=== PATIENT | male | born 1955 | race American Indian/Alaskan Native ===

== ENCOUNTER 2017-04-08 12:41 | Inpatient (IN) | payer MEDICARE ==
[2017-04-08 12:54] VITALS: BMI 29.2
--- NOTE | 2017-04-08 14:46 | C.PDOC ---
History Of Present Illness 61 year old male presents to ED for evaluation of intermittent shortness of breath, cough with white sputum for the past few months but worse in the past 2 days. Notes using nebulizer treatment without improvement. Denies having similar symptoms in the past. Denies chest pain, or fever. Chief Complaint (Nursing): Shortness Of Breath History Per: Patient History/Exam Limitations: no limitations Past Medical History Reviewed: Historical Data, Nursing Documentation, Vital Signs Vital Signs: Last Vital Signs Temp 98.2 F 04/08/17 20:03 Pulse 80 04/08/17 20:03 Resp 20 04/08/17 20:03 BP 162/105 H 04/08/17 20:03 Pulse Ox 95 04/08/17 20:03 - Medical History PMH: HTN Denies: Chronic Kidney Disease - [facility] Procedures CORONAR ARTERIOGR-2 CATH (01/25/14) LEFT HEART CARDIAC CATH (01/25/14) LT HEART ANGIOCARDIOGRAM (01/25/14) Family History: States: Unknown Family Hx - Social History Hx Alcohol Use: Yes Hx Substance Use: No - Immunization History Hx Tetanus Toxoid Vaccination: No Hx Influenza Vaccination: No Hx Pneumococcal Vaccination: No Review Of Systems Except As Marked, All Systems Reviewed And Found Negative. Constitutional: Negative for: Fever, Chills Cardiovascular: Negative for: Chest Pain, Palpitations Respiratory: Positive for: Cough, Shortness of Breath, Sputum Gastrointestinal: Negative for: Nausea, Vomiting, Abdominal Pain Physical Exam - Physical Exam Appears: Non-toxic, No Acute Distress Skin: Normal Color, Warm, Dry Head: Atraumatic, Normacephalic Eye(s): bilateral: Normal Inspection Oral Mucosa: Moist Cardiovascular: Rhythm Regular, No Murmur Respiratory: Normal Breath Sounds, No Rales, No Rhonchi, No Wheezing Gastrointestinal/Abdominal: Soft, No Tenderness Extremity: Normal ROM, No Pedal Edema Neurological/Psych: Oriented x3, Normal Speech ED Course And Treatment - Laboratory Results Result Diagrams: 04/08/17 14:21 04/08/17 14:21 ECG: Interpreted By Me, Viewed By Me ECG Rhythm: Sinus Rhythm ECG Interpretation: No Changes From Prior Interpretation Of ECG: T wave inversion in lateral leads. LVH. No change from . Rate From EC (bpm) O2 Sat by Pulse Oximetry: 100 (RA) Pulse Ox Interpretation: Normal Disposition - Disposition Disposition: HOSPITALIZED Disposition Time: 16:40 Condition: STABLE - Clinical Impression Clinical Impression: Chronic congestive heart failure - Scribe Statement The provider has reviewed the documentation as recorded by the Scribe Nette Buchanan All medical record entries made by the Scribe were at my direction and personally dictated by me. I have reviewed the chart and agree that the record accurately reflects my personal performance of the history, physical exam, medical decision making, and the department course for this patient. I have also personally directed, reviewed, and agree with the discharge instructions and disposition.
--- NOTE | 2017-04-08 14:58 | RAD ---
PROCEDURE: CHEST RADIOGRAPH, 1 VIEW HISTORY: chest pain COMPARISON: Chest radiograph dated 12/06/2016. FINDINGS: LUNGS: Prominence of the pulmonary vasculature may be secondary to AP technique and/or pulmonary vascular congestion. PLEURA: No pneumothorax or pleural fluid seen. CARDIOVASCULAR: Cardiomediastinal silhouette stably enlarged. OSSEOUS STRUCTURES: Unchanged. VISUALIZED UPPER ABDOMEN: Normal. OTHER FINDINGS: None. IMPRESSION: Prominence of the pulmonary vasculature may be secondary to AP technique and/or pulmonary vascular congestion. No focal consolidation or pleural effusion.
[2017-04-08 15:09] LABS: BASO # 0.1 K/uL (0.0-0.2); BASO % 1.1 % (0.0-2.0); EOS # 0.1 K/uL (0.0-0.7); EOS % 1.2 % (0.0-4.0); HEMOGLOBIN 14.2 g/dL (12.0-18.0); LYMPH # 1.7 K/uL (1.0-4.3); LYMPH % 31.1 % (20.0-40.0); MEAN CELL VOLUME 98.9 fL (80.0-94.0); MEAN CORPUSCULAR HEMOGLOBIN 35.2 pg (27.0-31.0); MEAN CORPUSCULAR HGB CONC 35.6 g/dL (33.0-37.0); MONO # 0.4 K/uL (0.0-0.8); MONO % 6.9 % (0.0-10.0); NEUT # 3.2 K/uL (1.8-7.0); NEUT % 59.7 % (50.0-75.0); RBC 4.04 Mil/uL (4.40-5.90); RED CELL DISTRIBUTION WIDTH 14.4 % (11.5-14.5); WHITE BLOOD COUNT 5.3 K/uL (4.8-10.8)
[2017-04-08 15:30] LABS: ALBUMIN 3.8 g/dL (3.5-5.0); ALT/SGPT 33 U/L (21-72); AST/SGOT 25 U/L (17-59); BLOOD UREA NITROGEN 13 mg/dL (9-20); GFR AFRICAN-AMERICAN > 60; GFR NON-AFRICAN AMERICAN > 60
[2017-04-08 15:41] LABS: B-TYPE NATRIURETIC PEPTIDE 3830 pg/mL (0-900)
[2017-04-08] MEDS ORDERED: Iodixanol 320 MG/ML 100 ML BOTTLE IV ONE (16:25)
--- NOTE | 2017-04-08 17:38 | CT ---
PROCEDURE: CTA chest dated 04/08/2017 HISTORY: Rule out PE. COMPARISON: Correlation made with concurrent chest radiograph obtained earlier same day. TECHNIQUE: Contiguous helical/ transaxial computed tomography images were obtained of the chest in the pulmonary arterial phase of enhancement. Coronal and sagittal reformatted images were created and reviewed. Intravenous contrast dose: 100 cc Visipaque 320 contrast material Radiation dose: Total exam DLP = 466.76 mGy-cm. This CT exam was performed using one or more of the following dose reduction techniques: Automated exposure control, adjustment of the mA and/or kV according to patient size, and/or use of iterative reconstruction technique FINDINGS: PULMONARY ARTERIES: The visualized pulmonary trunk, right and left main, lobar, segmental and proximal subsegmental branches of the pulmonary arteries are well opacified with no filling defects seen to suggest acute pulmonary embolus. Pulmonary trunk measures approximately 3.53 cm. AORTA: Ascending thoracic aorta is minimally dilated measuring nearly 3.8 cm and descending thoracic aorta measures approximately 2.8 cm. No evidence of aortic dissection. LUNGS: There is a mild to moderate-sized right-sided effusion with some minimal right basilar atelectasis. . Tiny left-sided effusion is present. Centrilobular and paraseptal emphysematous changes are present upper lobe predominance right greater than left. PLEURAL SPACES: Unremarkable. No effusion or pneumothorax. HEART: Heart is enlarged. No significant pericardial effusion. . LYMPH NODES: Multiple small to mildly enlarged mediastinal lymph nodes are present. The largest right parasagittal pretracheal/precarinal lymph node measures approximately 21 mm. There is a large approximately 3.0 cm cc x1 0.9 cm AP left suprahilar lymph node. Few smaller pre tracheal lymph nodes are seen as well. . Ill-defined rounded soft tissue mass density in the posterior inferior subcarinal region adjacent to the right aspect of the esophagus and dorsal to the left atrium extending into the as ago esophageal recess. . The due to enhancement of the pulmonary arterial vasculature and suboptimal contrast enhancement of the adjacent aorta evaluation is somewhat limited and the peripheral margins poorly delineated. This lesion is estimated at approximately 2.6 cm in greatest transverse dimension. It is unclear the relationship with the esophagus however correlation with endoscopy may be prudent. There is a small hiatal hernia with slight wall thickening of the distal esophagus likely due to protrusion of gastric mucosa. Esophagitis or other intrinsic/ invasive wall lesion not excluded. . Central airways are midline and patent. No large central endoluminal lesions. BONES, CHEST WALL: Mild multilevel degenerative spondylosis of the thoracic spine. No acute compression fractures no retropulsed fragments. No obvious suspicious lytic or blastic lesions. Minimal changes of gynecomastia. Several small right axillary lymph nodes are present. OTHER FINDINGS: Small calcification right renal hilar region felt to be vascular in origin. There are also calcifications seen at the origins of the proximal renal arteries left greater than right. Enlargement of the adrenal glands left greater than right. IMPRESSION: No evidence of acute pulmonary embolus. Mediastinal adenopathy as described. Underlying malignancy must be excluded. . Moderate size right-sided effusion. Emphysematous changes upper lobe predominance right greater than left. Note these findings were discussed with Dr. Gonzalez at approximately 5:28 p.m. with written down and read back verification.
--- NOTE | 2017-04-08 19:22 | CP.PCM.HP ---
History of Present Illness - History of Present Illness History of Present Illness: CC: SOB HPI: Patient is a 61 year old male with past medical history of HTN , heart murmur, who reports a 6 month history of increasing shortness of breath , accompanied by intermittent cough productive of white-yellow sputum. Patient saw Dr. Wan outpatient 2-3 weeks ago and was prescribed nebulizer but has hasn' t used it because he just got it recently. He reports that he often feels short of breath and dizzy when he wakes up in the morning. He states that he has been coughing a lot and gagging on the sputum, and he has to sleep propped up on multiple pillows at night. He denies needing to elevate his legs. He is not on home oxygen. His symptoms were significantly worse over the last few days, to the point where he was short of breath with rest and minimal exertion, so he came to the ED for evaluation. He reports subjective fever and chills. Otherwise , no chest pain, abdominal pain, leg swelling, recent illness. Patient did not get influenza/pneumococcal vaccines. Patient last saw his stone banker Dr. Obrien and manufacturing management associate Dr. Murphy a couple of months ago. His last cardiac catheterization was in January 2014 and it showed nonobstructive coronary arteries and normal LV function. Patient mentions a possible history of asbestos exposure. PMD: Dr. Wan Cardio: Dr. Angel Obrien Pulmo: Dr. Murphy PMH: HTN, heart murmur PSH: Bilateral knee replacements, bilateral shoulder repairs, cardiac catheterization (January 2014) Family History: Father (living, age 87, has unknown heart problem), Mother ( unknown heart problem; passed at age 77 due to kidney failure); no known history of CVA Medications: Hydrochlorthiazide 12.5mg PO daily, Losartan 25mg PO daily, Coreg 6.125mg PO BID, Advair 500/50mg RQ4H, nebulizer treatment, Singulair 10mg HS, Omeprazole 20mg PO daily, Albuterol/Ipratropium 120 puff inhaler Q6H Allergies: denies Social History: currently retired, formerly employed at [employer]; 42 pack year smoking history, has decreased over the last 3 weeks to 1 pack every 3 days; drinks alcohol daily; no recreational drug use Present on Admission - Present on Admission Any Indicators Present on Admission: No Review of Systems - Constitutional Constitutional: Chills, Fever - EENT Eyes: absent: Blurred Vision, Change in Vision Nose/Mouth/Throat: absent: Nasal Congestion, Nasal Discharge - Cardiovascular Cardiovascular: Dyspnea, Dyspnea on Exertion, Orthopnea, Paroxysmal Nocturnal Dyspnea. absent: Chest Pain, Chest Pain at Rest, Chest Pain with Activity, Edema, Leg Edema, Palpitations, Pedal Edema - Respiratory Respiratory: Cough, Wheezing, Chest Congestion, Excessive Mucous Production. absent: Dyspnea, Change in Mucous Color - Gastrointestinal Gastrointestinal: absent: Abdominal Pain, Cramping, Diarrhea, Nausea, Vomiting - Psychiatric Psychiatric: absent: Anxiety - Endocrine Endocrine: Fatigue. absent: Palpitations Past Patient History - Past Medical History & Family History Past Medical History?: Yes - Past Social History Smoking Status: Heavy Smoker > 10 Cigarettes Daily - CARDIAC Hx Hypertension: Yes - PULMONARY Hx Respiratory Disorders: No - NEUROLOGICAL Hx Neurological Disorder: No - HEENT Hx HEENT Problems: No - RENAL Hx Chronic Kidney Disease: No - ENDOCRINE/METABOLIC Hx Endocrine Disorders: No - HEMATOLOGICAL/ONCOLOGICAL Hx Blood Disorders: No - INTEGUMENTARY Hx Dermatological Problems: No - MUSCULOSKELETAL/RHEUMATOLOGICAL Hx Musculoskeletal Disorders: Yes (PAIN KNEE/SHOULDER) Hx Degenerative Joint Disease: Yes Hx Osteoarthritis: Yes - GASTROINTESTINAL Hx Gastrointestinal Disorders: No - GENITOURINARY/GYNECOLOGICAL Hx Genitourinary Disorders: No - PSYCHIATRIC Hx Substance Use: No - SURGICAL HISTORY Hx Surgeries: Yes Hx Joint Replacement: Yes (RT KNEE) Hx Musculoskeletal Surgery: Yes (TENDON LEFT SHOULDER) - ANESTHESIA Hx Anesthesia: Yes Hx Anesthesia Reactions: No Hx Malignant Hyperthermia: No Meds Allergies/Adverse Reactions: Allergies Allergy/AdvReac Type Severity Reaction Status Date / Time No Known Allergies Allergy Verified 04/08/17 12:53 Physical Exam - Constitutional Appears: No Acute Distress - Head Exam Head Exam: ATRAUMATIC, NORMAL INSPECTION - Eye Exam Eye Exam: EOMI - ENT Exam ENT Exam: Mucous Membranes Moist - Respiratory Exam Respiratory Exam: Clear to Auscultation Bilateral, NORMAL BREATHING PATTERN Additional comments: Congestion - Cardiovascular Exam Cardiovascular Exam: REGULAR RHYTHM, +S1, +S2 - GI/Abdominal Exam GI & Abdominal Exam: Normal Bowel Sounds, Soft - Extremities Exam Extremities exam: Positive for: normal inspection. Negative for: calf tenderness, pedal edema - Back Exam Back exam: absent: CVA tenderness (L), CVA tenderness (R) - Neurological Exam Neurological exam: Alert, Oriented x3 - Psychiatric Exam Psychiatric exam: Normal Affect, Normal Mood Results - Vital Signs Recent Vital Signs: Last Vital Signs Temp 97.6 F 04/08/17 12:55 Pulse 76 04/08/17 17:49 Resp 20 04/08/17 17:17 BP 148/98 H 04/08/17 17:49 Pulse Ox 99 04/08/17 17:17 - Labs Result Diagrams: 04/08/17 14:21 04/08/17 14:21 Labs: Laboratory Results - last 24 hr 04/08/17 04/08/17 04/08/17 14:21 14:21 14:25 WBC 5.3 RBC 4.04 L Hgb 14.2 Hct 39.9 MCV 98.9 H MCH 35.2 H MCHC 35.6 RDW 14.4 Plt Count 238 MPV 8.0 Neut % (Auto) 59.7 Lymph % (Auto) 31.1 [place] % (Auto) 6.9 Eos % (Auto) 1.2 Baso % (Auto) 1.1 Neut # (Auto) 3.2 Lymph # (Auto) 1.7 [place] # (Auto) 0.4 Eos # (Auto) 0.1 Baso # (Auto) 0.1 D-Dimer, Quantitative Sodium 138 Potassium 3.4 L Chloride 103 Carbon Dioxide 25 Anion Gap 14 BUN 13 Creatinine 1.0 Est GFR ( Amer) > 60 Est GFR (Non-Af Amer) > 60 Random Glucose 125 H Calcium 9.0 Total Bilirubin 1.1 AST 25 ALT 33 Alkaline Phosphatase 79 Troponin I 0.0550 NT-Pro-B Natriuret Pep 3830 H Total Protein 7.7 Albumin 3.8 Globulin 3.9 Albumin/Globulin Ratio 1.0 Influenza Typ A,B (EIA) Negative for flu a/b 04/08/17 14:25 WBC RBC Hgb Hct MCV MCH MCHC RDW Plt Count MPV Neut % (Auto) Lymph % (Auto) [place] % (Auto) Eos % (Auto) Baso % (Auto) Neut # (Auto) Lymph # (Auto) [place] # (Auto) Eos # (Auto) Baso # (Auto) D-Dimer, Quantitative 713 H Sodium Potassium Chloride Carbon Dioxide Anion Gap BUN Creatinine Est GFR ( Amer) Est GFR (Non-Af Amer) Random Glucose Calcium Total Bilirubin AST ALT Alkaline Phosphatase Troponin I NT-Pro-B Natriuret Pep Total Protein Albumin Globulin Albumin/Globulin Ratio Influenza Typ A,B (EIA) Assessment & Plan (1) Acute congestive heart failure Assessment and Plan: On admission: BNP: 3830 Labs: Troponin: Negative X1, f/U troponin X2 Image: Chest X-ray: Prominence of the pulmonary vasculature may be secondary to AP technique and/or pulmonary vascular congestion. No focal consolidation or pleural effusion. Chest CT: Moderate size right-sided effusion F/u echo Medications: Lasix 40mg IV daily Hydrochlorthiazide 12.5mg PO daily Losartan 25mg PO daily Monitor input and output Status: Acute (2) COPD exacerbation Assessment and Plan: Conveyor Feeder, Dr. Murphy consulted---> Help appreciated Chest CT: Emphysematous changes upper lobe predominance right greater than left. Medications: * Solumedrol 40mg IV Q12H * Duonebs RQ3H * Acetylcysteine 20% RQ3H * Singulair 10mg HS Status: Acute (3) Elevated d-dimer Assessment and Plan: Chest CT: No evidence of acute pulmonary embolus. Status: Acute (4) Hypertension Assessment and Plan: Continue home medications: * Coreg 6.125mg PO BID * Hydrochlorthiazide 12.5mg PO daily * Losartan 25mg PO daily f/U Lipid panel, HgbA1C and TSH Status: Acute (5) Prophylactic measure Assessment and Plan: GI: Protonix 40mg PO daily DVT: SCDs, Lovenox 30mg SC daily Aspirin 81mg PO daily Crestor 5 mg PO HS Heart healthy diet All plans and management discussed with Dr. Wan Status: Acute
[2017-04-08] MEDS ORDERED: Acetylcysteine 20% Inhal Soln (4ml) INH SCH (20:45)
[2017-04-08] MEDS ORDERED: MethylPREDNISolone 1 gm Vial IV SCH ×2 (21:00)
[2017-04-08] MEDS: MethylPREDNISolone 40 mg Vial IV SCH (21:17)
[2017-04-08] MEDS: Albuterol-Ipratrop 3 mg / 0.5 (3 ml) UD INH SCH (21:25)
[2017-04-09] MEDS ORDERED: Fluticasone-Salmeterol 500-50mcg Diskus IH SCH
[2017-04-09] MEDS: Albuterol-Ipratrop 3 mg / 0.5 (3 ml) UD INH SCH ×5 (00:32→11:33)
[2017-04-09] MEDS: Acetylcysteine 20% Inhal Soln (4ml) INH SCH ×7 (00:33→19:35)
[2017-04-09 08:26] LABS: BASO % 0.5 % (0.0-2.0); LYMPH # 0.5 K/uL (1.0-4.3); LYMPH % 12.5 % (20.0-40.0); MEAN CORPUSCULAR HEMOGLOBIN 35.1 pg (27.0-31.0); MEAN CORPUSCULAR HGB CONC 35.5 g/dL (33.0-37.0); MEAN PLATELET VOLUME 8.2 fL (7.2-11.7); MONO # 0.1 K/uL (0.0-0.8); MONO % 1.6 % (0.0-10.0); NEUT # 3.6 K/uL (1.8-7.0); NEUT % 85.4 % (50.0-75.0); NRBC % 0.1 % (0.0-2.0); RBC 3.99 Mil/uL (4.40-5.90); RED CELL DISTRIBUTION WIDTH 14.3 % (11.5-14.5); WHITE BLOOD COUNT 4.2 K/uL (4.8-10.8)
[2017-04-09 08:52] LABS: ALBUMIN 3.9 g/dL (3.5-5.0); ALT/SGPT 31 U/L (21-72); AST/SGOT 25 U/L (17-59); BLOOD UREA NITROGEN 13 mg/dL (9-20); CALCIUM 9.1 mg/dl (8.6-10.4); GFR AFRICAN-AMERICAN > 60; GFR NON-AFRICAN AMERICAN > 60; HDL CHOLESTEROL 38 mg/dL (30-70)
[2017-04-09] MEDS: Fluticasone-Salmeterol 500-50mcg Diskus INH SCH (09:00)
[2017-04-09 09:16] LABS: LDL CHOLESTEROL 114 mg/dL (0-129)
[2017-04-09] MEDS: MethylPREDNISolone 40 mg Vial IV SCH ×2 (09:25→23:30)
[2017-04-09] MEDS: Pantoprazole 40 mg EC Tab PO SCH (10:11)
--- NOTE | 2017-04-09 12:10 | CP.PCM.CON ---
History of Present Illness - History of Present Illness History of Present Illness: Complaining of cough and shortness of breath 61-year-old male with history of hypertension, long history of smoking and possible COPD was admitted with 6 month history of shortness of breath and cough. Patient was seen in the office a few months ago but lost followup. CAT scan of the chest done consistent with mediastinal llymphadenopathy and possible mass. Status post cardiac catheter few years ago with nonobstructive coronary arteries. PMH: HTN, heart murmur PSH: Bilateral knee replacements, bilateral shoulder repairs, cardiac catheterization (January 2014) Family History: Father (living, age 87, has unknown heart problem), Mother ( unknown heart problem; passed at age 77 due to kidney failure); no known history of CVA Medications: Hydrochlorthiazide 12.5mg PO daily, Losartan 25mg PO daily, Coreg 6.125mg PO BID, Advair 500/50mg RQ4H, nebulizer treatment, Singulair 10mg HS, Omeprazole 20mg PO daily, Albuterol/Ipratropium 120 puff inhaler Q6H Allergies: denies Social History: currently retired, formerly employed at [employer]; 42 pack year smoking history, has decreased over the last 3 weeks to 1 pack every 3 days; drinks alcohol daily; no recreational drug use Review of Systems - Review of Systems All systems: reviewed and no additional remarkable complaints except (shortness of breath and cough) Past Patient History - Past Medical History & Family History Past Medical History?: Yes - Past Social History Smoking Status: Never Smoked - CARDIAC Hx Hypertension: Yes - PULMONARY Hx Respiratory Disorders: No - NEUROLOGICAL Hx Neurological Disorder: No - HEENT Hx HEENT Problems: No - RENAL Hx Chronic Kidney Disease: No - ENDOCRINE/METABOLIC Hx Endocrine Disorders: No - HEMATOLOGICAL/ONCOLOGICAL Hx Blood Disorders: No - INTEGUMENTARY Hx Dermatological Problems: No - MUSCULOSKELETAL/RHEUMATOLOGICAL Hx Falls: No - GASTROINTESTINAL Hx Gastrointestinal Disorders: No - GENITOURINARY/GYNECOLOGICAL Hx Genitourinary Disorders: No - PSYCHIATRIC Hx Substance Use: No - SURGICAL HISTORY Hx Surgeries: Yes Hx Joint Replacement: Yes (RT KNEE) Hx Musculoskeletal Surgery: Yes (TENDON LEFT SHOULDER) - ANESTHESIA Hx Anesthesia: Yes Hx Anesthesia Reactions: No Hx Malignant Hyperthermia: No Meds Allergies/Adverse Reactions: Allergies Allergy/AdvReac Type Severity Reaction Status Date / Time No Known Allergies Allergy Verified 04/08/17 12:53 - Medications Medications: Current Medications Acetylcysteine (Acetylcysteine 20%) 4 ml INH RQ3 [facility] Last Admin: 04/09/17 11:33 Dose: 4 ml Albuterol/Ipratropium (Duoneb 3 Mg/0.5 Mg (3 Ml) Ud) 3 ml INH RQ3 [facility] Last Admin: 04/09/17 11:33 Dose: 3 ml Aspirin (Aspirin Chewable) 81 mg PO DAILY [facility] Last Admin: 04/09/17 10:12 Dose: 81 mg Carvedilol (Coreg) 12.5 mg PO BID [facility] Last Admin: 04/09/17 10:14 Dose: 12.5 mg Furosemide (Lasix) 40 mg IVP DAILY [facility] Last Admin: 04/09/17 11:00 Dose: 40 mg Hydrochlorothiazide (Microzide) 12.5 mg PO DAILY [facility] Last Admin: 04/09/17 10:11 Dose: 12.5 mg Losartan Potassium (Cozaar) 25 mg PO DAILY [facility] Methylprednisolone (Solu-Medrol) 40 mg IV Q12H [facility] Last Admin: 04/09/17 09:25 Dose: 40 mg Montelukast Sodium (Singulair) 10 mg PO HS [facility] Last Admin: 04/08/17 21:18 Dose: 10 mg Nicotine (Nicoderm Cq) 1 patch TD DAILY [facility] Last Admin: 04/09/17 11:00 Dose: 1 patch Pantoprazole Sodium (Protonix Ec Tab) 40 mg PO DAILY [facility] Last Admin: 04/09/17 10:11 Dose: 40 mg Rosuvastatin Calcium (Crestor) 5 mg PO HS [facility] Last Admin: 04/08/17 21:21 Dose: 5 mg Fluticasone/Salmeterol (Advair Diskus 500/50) 1 puff INH RQ12 [facility] Last Admin: 04/09/17 09:00 Dose: 1 puff Physical Exam - Head Exam Head Exam: ATRAUMATIC, NORMOCEPHALIC - ENT Exam ENT Exam: Mucous Membranes Moist - Neck Exam Neck exam: Positive for: Normal Inspection - Respiratory Exam Respiratory Exam: Rhonchi, Wheezes - Cardiovascular Exam Cardiovascular Exam: REGULAR RHYTHM - GI/Abdominal Exam GI & Abdominal Exam: Normal Bowel Sounds, Soft - Extremities Exam Extremities exam: Positive for: normal inspection Results - Vital Signs Recent Vital Signs: Last Vital Signs Temp 98.2 F 04/09/17 07:30 Pulse 80 04/09/17 07:30 Resp 20 04/09/17 07:30 BP 151/89 H 04/09/17 11:00 Pulse Ox 98 04/09/17 07:30 - Labs Result Diagrams: 04/09/17 08:13 04/09/17 08:13 Labs: Laboratory Results - last 24 hr 04/08/17 04/08/17 04/08/17 14:21 14:21 14:25 WBC 5.3 RBC 4.04 L Hgb 14.2 Hct 39.9 MCV 98.9 H MCH 35.2 H MCHC 35.6 RDW 14.4 Plt Count 238 MPV 8.0 Neut % (Auto) 59.7 Lymph % (Auto) 31.1 [place] % (Auto) 6.9 Eos % (Auto) 1.2 Baso % (Auto) 1.1 Neut # (Auto) 3.2 Lymph # (Auto) 1.7 [place] # (Auto) 0.4 Eos # (Auto) 0.1 Baso # (Auto) 0.1 D-Dimer, Quantitative Sodium 138 Potassium 3.4 L Chloride 103 Carbon Dioxide 25 Anion Gap 14 BUN 13 Creatinine 1.0 Est GFR ( Amer) > 60 Est GFR (Non-Af Amer) > 60 Random Glucose 125 H Hemoglobin A1c Calcium 9.0 Total Bilirubin 1.1 AST 25 ALT 33 Alkaline Phosphatase 79 Troponin I 0.0550 NT-Pro-B Natriuret Pep 3830 H Total Protein 7.7 Albumin 3.8 Globulin 3.9 Albumin/Globulin Ratio 1.0 Triglycerides Cholesterol LDL Cholesterol Direct HDL Cholesterol Procalcitonin Influenza Typ A,B (EIA) Negative for flu a/b 04/08/17 04/08/17 04/09/17 14:25 22:29 08:13 WBC 4.2 L RBC 3.99 L Hgb 14.0 Hct 39.5 MCV 99.0 H MCH 35.1 H MCHC 35.5 RDW 14.3 Plt Count 241 MPV 8.2 Neut % (Auto) 85.4 H Lymph % (Auto) 12.5 L [place] % (Auto) 1.6 Eos % (Auto) 0.0 Baso % (Auto) 0.5 Neut # (Auto) 3.6 Lymph # (Auto) 0.5 L [place] # (Auto) 0.1 Eos # (Auto) 0.0 Baso # (Auto) 0.0 D-Dimer, Quantitative 713 H Sodium Potassium Chloride Carbon Dioxide Anion Gap BUN Creatinine Est GFR ( Amer) Est GFR (Non-Af Amer) Random Glucose Hemoglobin A1c Calcium Total Bilirubin AST ALT Alkaline Phosphatase Troponin I 0.0480 NT-Pro-B Natriuret Pep Total Protein Albumin Globulin Albumin/Globulin Ratio Triglycerides Cholesterol LDL Cholesterol Direct HDL Cholesterol Procalcitonin Influenza Typ A,B (EIA) 04/09/17 04/09/17 04/09/17 08:13 08:13 08:13 WBC RBC Hgb Hct MCV MCH MCHC RDW Plt Count MPV Neut % (Auto) Lymph % (Auto) [place] % (Auto) Eos % (Auto) Baso % (Auto) Neut # (Auto) Lymph # (Auto) [place] # (Auto) Eos # (Auto) Baso # (Auto) D-Dimer, Quantitative Sodium 137 Potassium 3.7 Chloride 103 Carbon Dioxide 24 Anion Gap 14 BUN 13 Creatinine 0.9 Est GFR ( Amer) > 60 Est GFR (Non-Af Amer) > 60 Random Glucose 143 H Hemoglobin A1c 5.4 Calcium 9.1 Total Bilirubin 0.8 AST 25 ALT 31 Alkaline Phosphatase 76 Troponin I 0.0280 NT-Pro-B Natriuret Pep Total Protein 7.8 Albumin 3.9 Globulin 3.9 Albumin/Globulin Ratio 1.0 Triglycerides 45 Cholesterol 159 LDL Cholesterol Direct 114 HDL Cholesterol 38 Procalcitonin < 0.05 L Influenza Typ A,B (EIA) Assessment & Plan (1) Mediastinal lymphadenopathy Status: Acute Comment: rule out malignancy. Consider GI evaluation. EBUS AND bronchoscopy with biopsy (2) COPD exacerbation Status: Acute Comment: ccontinue IV steroids. Nebulizer treatment. Add antibiotics. spiriva
--- NOTE | 2017-04-09 17:10 | CP.PCM.PN ---
Subjective - Date & Time of Evaluation Date of Evaluation: 04/09/17 Time of Evaluation: 17:11 - Subjective Subjective: PGY2 Medicine Note for Dr. Wan Patient seen and examined at bedside this AM; denies any acute complaints or overnight events; denies fevers/chills, BENEDICT, CP, SOB, abdominal pain, N/V/D, dysuria/freq/urg or lower extremity pain. patient was told to stop smoking and was given nicotine patch. Objective - Vital Signs/Intake and Output Vital Signs (last 24 hours): Temp Pulse Resp BP Pulse Ox 98.2 F 80 20 151/89 H 98 04/09/17 07:30 04/09/17 07:30 04/09/17 07:30 04/09/17 11:00 04/09/17 07:30 Intake and Output: 04/09/17 04/09/17 06:59 18:59 Intake Total 440 Balance 440 - Medications Medications: Current Medications Acetylcysteine (Acetylcysteine 20%) 4 ml INH RQ3 [facility] Last Admin: 04/09/17 16:17 Dose: 4 ml Albuterol/Ipratropium (Duoneb 3 Mg/0.5 Mg (3 Ml) Ud) 3 ml INH RQ3 [facility] Last Admin: 04/09/17 11:33 Dose: 3 ml Aspirin (Aspirin Chewable) 81 mg PO DAILY [facility] Last Admin: 04/09/17 10:12 Dose: 81 mg Carvedilol (Coreg) 12.5 mg PO BID [facility] Last Admin: 04/09/17 10:14 Dose: 12.5 mg Furosemide (Lasix) 40 mg IVP DAILY [facility] Last Admin: 04/09/17 11:00 Dose: 40 mg Hydrochlorothiazide (Microzide) 12.5 mg PO DAILY [facility] Last Admin: 04/09/17 10:11 Dose: 12.5 mg Losartan Potassium (Cozaar) 25 mg PO DAILY [facility] Last Admin: 04/09/17 10:14 Dose: 25 mg Methylprednisolone (Solu-Medrol) 40 mg IV Q12H [facility] Last Admin: 04/09/17 09:25 Dose: 40 mg Montelukast Sodium (Singulair) 10 mg PO HS [facility] Last Admin: 04/08/17 21:18 Dose: 10 mg Nicotine (Nicoderm Cq) 1 patch TD DAILY [facility] Last Admin: 04/09/17 11:00 Dose: 1 patch Pantoprazole Sodium (Protonix Ec Tab) 40 mg PO DAILY [facility] Last Admin: 04/09/17 10:11 Dose: 40 mg Rosuvastatin Calcium (Crestor) 5 mg PO HS [facility] Last Admin: 04/08/17 21:21 Dose: 5 mg Fluticasone/Salmeterol (Advair Diskus 500/50) 1 puff INH RQ12 [facility] Last Admin: 04/09/17 09:00 Dose: 1 puff - Labs Labs: 04/09/17 08:13 04/09/17 08:13 - Constitutional Appears: Well, Non-toxic - Head Exam Head Exam: ATRAUMATIC - Eye Exam Eye Exam: EOMI - ENT Exam ENT Exam: Mucous Membranes Moist - Neck Exam Neck Exam: Full ROM. absent: Lymphadenopathy - Respiratory Exam Respiratory Exam: Clear to Ausculation Bilateral, NORMAL BREATHING PATTERN. absent: Rales, Rhonchi, Wheezes - Cardiovascular Exam Cardiovascular Exam: REGULAR RHYTHM, +S1, +S2 - GI/Abdominal Exam GI & Abdominal Exam: Soft, Normal Bowel Sounds. absent: Tenderness - Extremities Exam Extremities Exam: Full ROM. absent: Calf Tenderness - Back Exam Back Exam: NORMAL INSPECTION. absent: CVA tenderness (L), CVA tenderness (R) - Neurological Exam Neurological Exam: Alert, Awake, CN II-XII Intact, Oriented x3 - Skin Skin Exam: Warm Assessment and Plan - Assessment and Plan (Free Text) Assessment: 61yo M admitted for CHF exacerbation Acute congestive heart failure BNP: 3830 Troponin negative to date Chest X-ray: Prominence of the pulmonary vasculature may be secondary to AP technique and/or pulmonary vascular congestion. No focal consolidation or pleural effusion. 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 Medications: * Solumedrol 40mg IV Q12H * Duonebs RQ3H * Acetylcysteine 20% RQ3H * Singulair 10mg HS Smoking cessation strongly encouraged to patient nicotine patch given Elevated d-dimer; PE ruled out Chest CT: No evidence of acute pulmonary embolus. Hypertension;Chronic Continue home medications: * Coreg 6.125mg PO BID * Hydrochlorthiazide 12.5mg PO daily * Losartan 25mg PO daily * add aldactone Prophylactic measure GI: Protonix 40mg PO daily DVT: SCDs, Lovenox 30mg SC daily Aspirin 81mg PO daily Crestor 5 mg PO HS Heart healthy diet All plans and management discussed with Dr. Wan; all management as per Dr. Wan
[2017-04-10] MEDS: Albuterol-Ipratrop 3 mg / 0.5 (3 ml) UD INH SCH ×4 (01:38→11:23)
[2017-04-10] MEDS: Acetylcysteine 20% Inhal Soln (4ml) INH SCH ×4 (01:44→11:23)
[2017-04-10] MEDS: Fluticasone-Salmeterol 500-50mcg Diskus INH SCH (08:10)
[2017-04-10 08:33] LABS: BASO % 0.1 % (0.0-2.0); HEMOGLOBIN 14.2 g/dL (12.0-18.0); LYMPH # 0.6 K/uL (1.0-4.3); LYMPH % 5.4 % (20.0-40.0); MEAN CELL VOLUME 99.2 fL (80.0-94.0); MEAN CORPUSCULAR HEMOGLOBIN 35.3 pg (27.0-31.0); MEAN CORPUSCULAR HGB CONC 35.6 g/dL (33.0-37.0); MEAN PLATELET VOLUME 8.4 fL (7.2-11.7); MONO # 0.2 K/uL (0.0-0.8); NEUT # 9.7 K/uL (1.8-7.0); NEUT % 92.5 % (50.0-75.0); PLATELET COUNT 241 K/uL (130-400); RBC 4.04 Mil/uL (4.40-5.90); RED CELL DISTRIBUTION WIDTH 14.3 % (11.5-14.5); WHITE BLOOD COUNT 10.4 K/uL (4.8-10.8)
[2017-04-10 08:47] VITALS: BP 146/99; PULSE 82; RESP 20; TEMP 97.6; O2SAT 96
[2017-04-10] MEDS: Pantoprazole 40 mg EC Tab PO SCH (09:07)
[2017-04-10] MEDS: MethylPREDNISolone 40 mg Vial IV SCH (09:08)
[2017-04-10 09:14] LABS: ALBUMIN 3.8 g/dL (3.5-5.0); ALT/SGPT 22 U/L (21-72); AST/SGOT 24 U/L (17-59); BLOOD UREA NITROGEN 17 mg/dL (9-20); CALCIUM 8.9 mg/dl (8.6-10.4); GFR AFRICAN-AMERICAN > 60; GFR NON-AFRICAN AMERICAN > 60
[2017-04-10 09:41] LABS: LYMPHOCYTE 7 % (20-40); MONOCYTE 2 % (0-10); NEUTROPHIL 91 % (50-75); PLATELET ESTIMATE NORMAL (NORMAL); TOTAL CELLS COUNTED 100
[2017-04-10 09:43] LABS: ANISOCYTOSIS SLIGHT
[2017-04-10 09:44] LABS: TOXIC GRANULATION PRESENT
--- NOTE | 2017-04-10 10:36 | CARD ---
APPROVED REPORT EXAM: Two-dimensional and M-mode echocardiogram with Doppler and color Doppler. Other Information Quality : GoodRhythm : NSR INDICATION Dyspnea M-Mode DIMENSIONS Left Atrium (MM)5.27 (2.5-4.0cm)IVSd1.11 (0.7-1.1cm) Aortic Root3.65 (2.2-3.7cm)LVDd6.60 (4.0-5.6cm) Aortic Cusp Exc.1.73 (1.5-2.0cm)PWd1.11 (0.7-1.1cm) FS (%) 15 %LVDs5.61 (2.0-3.8cm) LVEF (%)31 (>50%) Aortic Valve AI P 1/2 [id number] Mitral Valve MV E Zyxvccrf397.4cm/sMV A Rrggbzsh76.2cm/sE/A ratio2.3 TDI E/Lateral E'0.0E/Medial E'0.0 Tricuspid Valve TR Peak [id number]/sTR Peak [id number] LEFT VENTRICLE The Left Ventricle is borderline dilated. There is borderline left ventricular hypertrophy. Left ventricle systolic function is moderately to severely impaired. The Ejection Fraction is 30-35%. There is global hypokinesis of the left ventricle. Transmitral Doppler flow pattern is Grade II-pseudonormal filling dynamics. There is no ventricular septal defect visualized. RIGHT VENTRICLE The right ventricle is normal size. The right ventricular systolic function is normal. ATRIA The left atrium is mildly dilated. The right atrium size is normal. AORTIC VALVE The aortic valve is mildly sclerotic. The aortic valve is tri-cuspid. There is mild to moderate aortic regurgitation. There is no aortic valvular stenosis. MITRAL VALVE The mitral valve is normal in structure. There is no evidence of mitral valve prolapse. Mitral regurgitation is mild. TRICUSPID VALVE The tricuspid valve is normal in structure. There is trace tricuspid regurgitation. Right ventricular systolic pressure is estimated at less than 30 mmHg. There is no pulmonary hypertension. PULMONIC VALVE The pulmonic valve is not well visualized. There is trace pulmonic valvular regurgitation. GREAT VESSELS The aortic root is normal in size. The IVC was not visualized. PERICARDIAL EFFUSION There is no pericardial effusion. <Conclusion> There is borderline left ventricular hypertrophy. Left ventricle systolic function is moderately to severely impaired. The Ejection Fraction is 30-35%. There is global hypokinesis of the left ventricle. Transmitral Doppler flow pattern is Grade II-pseudonormal filling dynamics. There is mild to moderate aortic regurgitation. Mitral regurgitation is mild.
--- NOTE | 2017-04-10 13:40 | CP.PCM.DIS ---
Provider - Provider Date of Admission: 04/08/17 14:50 Attending physician: Eric Helton Jr, MD Primary care physician: Dr. helton Consults: Dr. Murphy; pulm Dr. Obrien; cardio patient will see dr cervantes on outpatient as per Dr. Helton Time Spent in preparation of Discharge (in minutes): 45 Hospital Course - Lab Results Lab Results: Micro Results 04/08/17 14:30 Blood Blood Culture - Preliminary NO GROWTH AFTER 24 HOURS 04/08/17 15:00 Blood Blood Culture - Preliminary NO GROWTH AFTER 24 HOURS Most Recent Lab Values WBC 10.4 K/uL (4.8-10.8) D 04/10/17 08:24 RBC 4.04 Mil/uL (4.40-5.90) L 04/10/17 08:24 Hgb 14.2 g/dL (12.0-18.0) 04/10/17 08:24 Hct 40.0 % (35.0-51.0) 04/10/17 08:24 MCV 99.2 fL (80.0-94.0) H 04/10/17 08:24 MCH 35.3 pg (27.0-31.0) H 04/10/17 08:24 MCHC 35.6 g/dL (33.0-37.0) 04/10/17 08:24 RDW 14.3 % (11.5-14.5) 04/10/17 08:24 Plt Count 241 K/uL (130-400) 04/10/17 08:24 MPV 8.4 fL (7.2-11.7) 04/10/17 08:24 Neut % (Auto) 92.5 % (50.0-75.0) H 04/10/17 08:24 Lymph % (Auto) 5.4 % (20.0-40.0) L 04/10/17 08:24 Fajardo % (Auto) 2.0 % (0.0-10.0) 04/10/17 08:24 Eos % (Auto) 0.0 % (0.0-4.0) 04/10/17 08:24 Baso % (Auto) 0.1 % (0.0-2.0) 04/10/17 08:24 Neut # (Auto) 9.7 K/uL (1.8-7.0) H 04/10/17 08:24 Lymph # (Auto) 0.6 K/uL (1.0-4.3) L 04/10/17 08:24 Fajardo # (Auto) 0.2 K/uL (0.0-0.8) 04/10/17 08:24 Eos # (Auto) 0.0 K/uL (0.0-0.7) 04/10/17 08:24 Baso # (Auto) 0.0 K/uL (0.0-0.2) 04/10/17 08:24 Neutrophils % (Manual) 91 % (50-75) H 04/10/17 08:24 Lymphocytes % (Manual) 7 % (20-40) L 04/10/17 08:24 Monocytes % (Manual) 2 % (0-10) 04/10/17 08:24 Toxic Granulation Present 04/10/17 08:24 Platelet Estimate Normal (NORMAL) 04/10/17 08:24 Anisocytosis (manual) Slight 04/10/17 08:24 D-Dimer, Quantitative 713 ng/mlDDU (0-243) H 04/08/17 14:25 Sodium 138 mmol/L (132-148) 04/10/17 08:24 Potassium 4.1 mmol/L (3.6-5.2) 04/10/17 08:24 Chloride 103 mmol/L (98-107) 04/10/17 08:24 Carbon Dioxide 23 mmol/L (22-30) 04/10/17 08:24 Anion Gap 15 (10-20) 04/10/17 08:24 BUN 17 mg/dL (9-20) 04/10/17 08:24 Creatinine 0.9 mg/dL (0.8-1.5) 04/10/17 08:24 Est GFR ( Amer) > 60 04/10/17 08:24 Est GFR (Non-Af Amer) > 60 04/10/17 08:24 Random Glucose 150 mg/dL (75-110) H 04/10/17 08:24 Hemoglobin A1c 5.4 % (4.2-6.5) 04/09/17 08:13 Calcium 8.9 mg/dl (8.6-10.4) 04/10/17 08:24 Total Bilirubin 0.6 mg/dL (0.2-1.3) 04/10/17 08:24 AST 24 U/L (17-59) 04/10/17 08:24 ALT 22 U/L (21-72) 04/10/17 08:24 Alkaline Phosphatase 68 U/L (38-126) 04/10/17 08:24 Troponin I 0.0280 ng/mL (0.00-0.120) 04/09/17 08:13 NT-Pro-B Natriuret Pep 3830 pg/mL (0-900) H 04/08/17 14:21 Total Protein 7.7 g/dL (6.3-8.3) 04/10/17 08:24 Albumin 3.8 g/dL (3.5-5.0) 04/10/17 08:24 Globulin 3.9 gm/dL (2.2-3.9) 04/10/17 08:24 Albumin/Globulin Ratio 1.0 (1.0-2.1) 04/10/17 08:24 Triglycerides 45 mg/dL (0-149) 04/09/17 08:13 Cholesterol 159 mg/dL (0-199) 04/09/17 08:13 LDL Cholesterol Direct 114 mg/dL (0-129) 04/09/17 08:13 HDL Cholesterol 38 mg/dL (30-70) 04/09/17 08:13 Procalcitonin < 0.05 NG/ML (0.19-0.49) L 04/09/17 08:13 Influenza Typ A,B (EIA) Negative for flu a/b (NEGATIVE) 04/08/17 14:25 - Hospital Course Hospital Course: Acute congestive heart failure BNP: 3830 Troponin negative to date Chest X-ray: Prominence of the pulmonary vasculature may be secondary to AP technique and/or pulmonary vascular congestion. No focal consolidation or pleural effusion. 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 Murphy consulted---> Help appreciated Chest CT: Emphysematous changes upper lobe predominance right greater than left. Medications: * Solumedrol 40mg IV Q12H * Duonebs RQ3H * Acetylcysteine 20% RQ3H * Singulair 10mg HS Smoking cessation strongly encouraged to patient nicotine patch given Elevated d-dimer; PE ruled out Chest CT: No evidence of acute pulmonary embolus. Hypertension;Chronic Continue home medications: * Coreg 6.125mg PO BID * Hydrochlorthiazide 12.5mg PO daily * Losartan 25mg PO daily * add aldactone Prophylactic measure GI: Protonix 40mg PO daily DVT: SCDs, Lovenox 30mg SC daily Aspirin 81mg PO daily Crestor 5 mg PO HS Heart healthy diet All plans and management discussed with Dr. Helton; all management as per Dr. Helton ; dr helton states patient is stable for d/c Daily weights add aspirin add aldactone c/w other bp measuremeants See Dr. cervantes cardiology within the week repeat echo 3 months for LVEF fxn quit smoking low salt diet; exercise/lifestyle modifications also f/u dr murphy for pulm for suspicious CT scan patient aware Discharge Exam - Head Exam Head Exam: ATRAUMATIC - Eye Exam Eye Exam: EOMI, Normal appearance, PERRL - Respiratory Exam Respiratory Exam: Clear to PA & Lateral. absent: Rales, Rhonchi, Wheezes - Cardiovascular Exam Cardiovascular Exam: REGULAR RHYTHM, +S1, +S2 - GI/Abdominal Exam GI & Abdominal Exam: Normal Bowel Sounds. absent: Firm, Guarding, Hernia - Rectal Exam Rectal Exam: Deferred - Extremities Exam Extremities exam: full ROM - Back Exam Back exam: NORMAL INSPECTION. absent: CVA tenderness (L), CVA tenderness (R) - Neurological Exam Neurological exam: Alert, CN II-XII Intact, Normal Gait, Oriented x3 - Psychiatric Exam Psychiatric exam: Normal Affect, Normal Mood - Skin Skin Exam: Warm Discharge Plan - Discharge Medications Prescriptions: Aspirin [Ecotrin] 81 mg PO DAILY #30 tablet. Furosemide [Lasix] 20 mg PO DAILY #30 tablet Nicotine Gum [Nicorette Gum] 2 mg PO Q6H PRN #90 gum PRN Reason: smoking cessation Spironolactone [Aldactone] 50 mg PO DAILY #30 tablet - Follow Up Plan Condition: GOOD Disposition: HOME/ ROUTINE Patient education suggested?: Yes Instructions: Heart Failure Exercise Guide, Heart Failure, Adult Referrals: Roma Cervantes MD [Staff Provider] - New Murphy MD [Staff Provider] - Clinical Quality Measures - CQM - Heart Failure Ejection Fraction: Less Than 40 % Left Ventricular Function to be assessed after discharge: Yes DENNISE Inhibitor Prescribed: No Contraindication/Reason for not providing: on arb Beta-Zeina Prescribed: Carvedilol Angiotensin II Receptor Zeina Prescribed: Yes Contraindication/Reason for not providing: losartan AnticoagulationTherapy for Atrial Fibrillation/Atrialflutter: No Contraindication/Reason for not providing: not needed Aldosterone Antagonist Prescribed: Yes Hydralazine Nitrate Prescribed: No Contraindication/Reason for not providing: not indicated Implantable Cardioverter Defibrillator Therapy: No Contraindication/Reason for not providing: not indicated at this time Cardiac Resynchronization Therapy Prescribed: No Contraindication/Reason for not providing: not in dicated Will be discharged to: Home Follow Up Date (must be within 7 days from discharge): 04/18/17 (dr cervantes ) Follow Up Time: 09:00 - Date & Time of Discharge Summary Date of Discharge Summary: 04/10/17
--- NOTE | 2017-04-11 12:51 | CARD ---
APPROVED REPORT EKG Measurement Heart [id number] <Conclusion> Normal sinus rhythm Possible Left atrial enlargement Left ventricular hypertrophy with repolarization abnormality Prolonged QT Abnormal ECG
== END 2017-04-10 15:00 | disposition home or self-care (01) | DRG 292 ==
LOC: C.ER 12:41 → C.9E 14:50 → C.5S 19:42
PROVIDERS: ADMIT Internal Medicine; ATTEND Internal Medicine
DX: I11.0 Hypertensive heart disease with heart failure (principal); J44.1 Chronic obstructive pulmonary disease with (acute) exacerbation; I50.9 Heart failure, unspecified; F17.210 Nicotine dependence, cigarettes, uncomplicated; Z96.653 Presence of artificial knee joint, bilateral